=== PATIENT | female | born 2000 | race Caucasian/White ===

== ENCOUNTER 2022-06-09 23:14 | Emergency (ER) | payer MEDICAID, SELFPAY ==
[2022-06-09 23:15] VITALS: BP 125/84; PULSE 104; PULSE 92; RESP 17; TEMP 36.4; O2SAT 94; BMI 23.1
[2022-06-10] MEDS: Ipratropium/Albuterol Sulfate 3 ML AMPUL.NEB INHALATION (00:07)
[2022-06-10] MEDS: predniSONE 20 MG Tablet 60 MG PO (00:29)
[2022-06-10 00:30] VITALS: O2SAT 100
--- NOTE | 2022-06-10 01:12 | EDS_ITS ---
HPI History of Present Illness Chief Complaint: Asthma Narrative Narrative: Patient is a 21-year-old female with past medical history of autoimmune disease and asthma. She states her asthma is typically well controlled on daily Dulera as well as a rescue inhaler. She states that she missed an appointment with her visual arts teacher and was kicked out of the practice. She states she is searching for a new provider but at this time does not have 1 and has been off her medication for about 1 month. She denies any congestion drainage cough or sick exposure and states that there has been no other chemical/allergic exposure. However over the last day has had increasing shortness of breath and as he does not have medication to treat her symptoms called EMS to bring her in for evaluation. She states she was given an breathing treatment in the ambulance and does feel much better upon arrival [facility] Home Medications albuterol sulfate 90 mcg/actuation aerosol inhaler (Ventolin HFA) 1 - 2 puff inhalation Q4H PRN PRN Wheezing #1 device 06/10/22 [Rx Last Taken Unknown] mometasone-formoterol HFA 100 mcg-5 mcg/actuation aerosol inhaler (Dulera) 2 puff inhalation BID #13 grams 06/10/22 [Rx Last Taken Unknown] prednisone 20 mg tablet 40 mg PO DAILY 4 days #8 tabs 06/10/22 [Rx Last Taken Unknown] Allergy/AdvReac Type Severity Reaction Status Date / Time amoxicillin [From Augmentin] Allergy Hives Verified 06/09/22 23:19 clavulanic acid Allergy Hives Verified 06/09/22 23:19 [From Augmentin] Social History Smoking Status: Never smoker [facility] ED Constitutional Constitutional ED: Denies chills or fever(s) ENT ENT ED: Denies rhinorrhea or sore throat Cardiovascular Cardiovascular: Denies chest pain Respiratory/Chest Respiratory/Chest: Reports cough and dyspnea Gastrointestinal Gastrointestinal: Denies abdominal pain, diarrhea, nausea or vomiting Genitourinary Genitourinary ED: Denies dysuria Musculoskeletal Musculoskeletal: Denies myalgias Integumentary Denies rash Neurologic Neurologic: Denies headache(s) Hematologic/Lymphatic Hematologic/Lymphatic: Denies easy bleeding or easy bruising EXAM Physical Exam Const Vital Signs: 06/09/22 23:15 06/09/22 23:15 06/10/22 00:30 Temperature 97.6 F L Temperature Source Temporal Pulse Rate 92 104 H Respiratory Rate 17 Respiratory Effort Normal Respiratory Depth Normal Respiratory Pattern Normal Blood Pressure 125/84 H Blood Pressure Mean 97 Pulse Ox 94 94 Oxygen Delivery Method Room Air Room Air Room Air 06/10/22 01:21 Temperature Temperature Source Pulse Rate 65 Respiratory Rate 18 Respiratory Effort Respiratory Depth Respiratory Pattern Blood Pressure 94/68 Blood Pressure Mean Pulse Ox 100 Oxygen Delivery Method Positive well nourished and well developed General Appearance ED: well developed HEENT Reports moist mucous membranes HEENT Narrative: No tongue or lip swelling no oral lesions no airway edema or compromise Eyes PERRL and EOMs intact bilaterally Neck supple and no JVD Resp normal respiratory effort Resp Narrative: Breath sounds are diminished throughout with faint expiratory wheeze in the bilateral bases but otherwise no nasal flaring retractions tachypnea or accessory muscle use Cardio regular rate and regular rhythm Extremity normal to inspection Extremity Narrative: No asymmetric edema no pitting edema negative Homans' sign bilaterally Neuro oriented x3 and CN's II-XII intact bilaterally Sensorium / Orientation: alert Psych mental status grossly normal Skin no rashes or lesions noted MDM MDM MDM Narrative Medical decision making narrative: Patient presented to the ER no acute respiratory distress and reported much improvement after an EMS breathing medication. At this time she does not have signs of sickness as a cause of her asthma exacerbation and I feel it is most likely related to the fact she been off her medication. Therefore she was given oral prednisone as well as a repeat breathing medication in the ER. On reevaluation her pulse ox now up to 100% on room air and her breath sounds have improved as well. Therefore at this time as she is not in respiratory distress or requiring supplemental oxygen there is no need for admission to the hospital or further work-up. I have low concern for pneumonia or pneumothorax as a cause of her respiratory distress and therefore do not feel there is need for an x- ray. Patient will be given prescriptions for Dulera and albuterol which she is taken in the past to control her symptoms and as they have improved with treatment in the ER is otherwise safe for discharge Discharge Plan Triage Chief Complaint: Asthma ED Provider: Rosalino Stewart Dx/Rx/DC Orders Clinical Impression: Asthma exacerbation Instructions: Asthma Prescriptions: New albuterol sulfate [Ventolin HFA] 90 mcg/actuation HFA aerosol inhaler 1 - 2 puff inhalation Q4H PRN PRN (Reason: Wheezing) Qty: 1 2RF prednisone 20 mg tablet 40 mg PO DAILY 4 Days Qty: 8 0RF Dulera 100-5 mcg/actuation HFA aerosol inhaler 2 puff inhalation BID Qty: 13 3RF Primary Care Provider: Care Physician,No Primary Referrals: Estela Crenshaw MD [Med Staff - Rotary Adjuster] - Care Physician,No Primary [Primary Care Provider] - Activity Restrictions/Additional Instructions: Please take your medications as directed to help control your asthma and return to the ER should you have any further concerns Disposition Disposition: Home, Self Care Discharge Date/Time: 06/10/22 01:22
[2022-06-10 01:21] VITALS: BP 94/68; PULSE 65; RESP 18; O2SAT 100
== END 2022-06-10 01:22 | disposition home or self-care (01) ==
PROVIDERS: Emergency Provider Emergency Medicine; Visit Provider Emergency Medicine
DX: J45.901 Unspecified asthma with (acute) exacerbation (principal); Z79.51 Long term (current) use of inhaled steroids
CPT/HCPCS: 99284

== ENCOUNTER 2024-02-13 11:45 | Emergency (ER) | payer MEDICAID, SELFPAY ==
[2024-02-13 11:46] VITALS: BP 130/69; PULSE 81; RESP 16; TEMP 36.3; O2SAT 100; BMI 23.3
--- NOTE | 2024-02-13 12:06 | CT_ITS ---
HISTORY: left facial pain TECHNIQUE: Helically acquired images of the facial bones were obtained after the intravenous administration of 100 mL Isovue-300. A radiation dose optimization technique was used for this scan. 415 images. COMPARISON: None. FINDINGS: OSSEOUS STRUCTURES: No acute fracture or dislocation identified. No cortical erosion seen. SOFT TISSUES: No rim-enhancing fluid collection. Metallic jewelry in the face and oral cavity. PARANASAL SINUSES: Bilateral maxillary sinus mucous retention cysts. VISUALIZED MASTOID AIR CELLS: Clear. ORBITAL CONTENTS: Both globes, extraocular muscles and retrobulbar fat appear unremarkable. CT/Sinus/Facial Bone WITH Contras IMPRESSION: No evidence of facial abscess. No acute osseous abnormality identified. Electronically Signed: Diana Trotter MD at 13:31 EDT ,
--- NOTE | 2024-02-13 12:16 | EX.ED.DYSGE1 ---
HPI History of Present Illness Chief Complaint: Dental Informant: patient Narrative Narrative: 23-year-old female presenting to the emergency room with a chief complaint of facial pain. Patient states that she noted some slight facial discomfort during 1 night on the left but seem better just put her hand on her face. Patient states that about 0900 hrs. this morning she developed a severe sharp stabbing pain on the left face. She describes it is along the left sinus (maxillary) and around the left mandible. She denies any dental pain. No ear pain. She denies rash. She states she feels like her face is swollen. She has never had this before. No fever no vision changes. She denies any facial spasms or twitches. [facility] Medical History (Updated 02/13/24 @ 12:25 by Padmaja Whitten) Lupus Asthma Home Medications ?Medication ?Instructions ?Recorded ?Last Taken ?Type albuterol sulfate 90 mcg/actuation 1 - 2 puff inhalation Q4H PRN PRN 06/10/22 Unknown Rx aerosol inhaler (Ventolin HFA) Wheezing #1 device mometasone-formoterol HFA 100 2 puff inhalation BID #13 grams 06/10/22 Unknown Rx mcg-5 mcg/actuation aerosol inhaler (Dulera) prednisone 20 mg tablet 40 mg (2 x 20 mg) PO DAILY 4 days 06/10/22 Unknown Rx #8 tabs Allergy/AdvReac Type Severity Reaction Status Date / Time amoxicillin (From Augmentin) Allergy Hives Verified 02/13/24 11:49 clavulanic acid (From Allergy Hives Verified 02/13/24 11:49 Augmentin) Social History Smoking Status: Never smoker ROS ROS ED Constitutional Constitutional ED: Denies chills, fever(s) or weight loss Eyes Eyes: Denies blurry vision, change in vision or diplopia ENT ENT ED: Reports other Details: See history of present illness ; Denies ear pain, rhinorrhea or sore throat Cardiovascular Cardiovascular: Denies chest pain, orthopnea, palpitations or racing heartbeat Respiratory/Chest Respiratory/Chest: Denies cough, dyspnea or orthopnea Gastrointestinal Gastrointestinal: Denies abdominal pain, diarrhea, nausea or vomiting Genitourinary Genitourinary ED: Denies dysuria, hematuria or urinary frequency Musculoskeletal Musculoskeletal: Denies arthralgias or myalgias Integumentary Denies abscess or rash Neurologic Neurologic: Denies headache(s) or weakness Psychiatric Psychiatric: Denies anxiety, depression, suicidal ideation or suicidal thoughts Endocrine Endocrinology: Denies polydipsia, polyphagia or polyuria Allergic/Immunologic Allergic/Immunologic ED: Denies mouth swelling, tongue swelling or urticaria EXAM Physical Exam Const Vital Signs: 02/13/24 11:46 02/13/24 13:36 Temperature 97.3 F L 98.6 F Temperature Source Temporal Pulse Rate 81 72 Respiratory Rate 16 18 Blood Pressure 130/69 H 123/76 H Blood Pressure Mean 89 91 Pulse Ox 100 99 Oxygen Delivery Method Room Air Positive well nourished and well developed General Appearance ED: well developed HEENT Reports normocephalic, head/scalp atraumatic, TM's clear and moist mucous membranes HEENT Narrative: No dental tenderness. No trismus. Oropharyngeal exam appears normal. I do not appreciate facial swelling. I do not appreciate facial rash or rash on the tympanic membrane or external canal. Floor the mouth is soft. Tympanic Membrane ED: Yes TM's clear Eyes PERRL and EOMs intact bilaterally Neck no lymphadenopathy, supple and no JVD Resp normal respiratory effort and clear to auscultation bilaterally Cardio regular rate, regular rhythm and no murmurs GI normal to inspection, nondistended, normoactive bowel sounds and non-tender Palpation: soft Back/Spine no CVA tenderness and normal ROM Extremity normal to inspection General Extremety ED: Negative for edema General Extremity: Negative for edema Neuro oriented x3 and CN's II-XII intact bilaterally Sensorium / Orientation: alert Motor Exam: strength 5/5 throughout Psych mental status grossly normal Mood & Affect: tearful; Negative for depressed Skin no rashes or lesions noted and no wounds MDM MDM MDM Narrative Medical decision making narrative: Differential diagnosis includes but not limited to zoster, tic [place]/congenital neuralgia dental abscess parotitis Ricardo's angina sinusitis test is negative. Sodium potassium calcium within normal limits glucose of 92. CT of the face with IV contrast does not show anything acute. I do not see a definitive cause for the patient's symptomology. We talked about the possibility of developing a zoster like rash. We talked about pain control at home and following up with primary care if symptoms are persisting. She is comfortable with this plan. She has received Toradol and a dose of oxycodone here. She is more comfortable. History & Record Review Discussion w/independent historian: Patient Lab Data Attestation: I reviewed the patient's lab results. Labs: Laboratory Results - last 24 hr 02/13/24 12:25 Sodium 140 Potassium 3.6 Chloride 110 H Carbon Dioxide 26.0 Anion Gap 5 BUN 5 L Creatinine 0.72 Estim Creat Clear Calc 109.35 Est GFR (MDRD) Af Amer 128 Est GFR (MDRD) Non-Af 106 BUN/Creatinine Ratio 6.9 L Glucose 92 Calcium 9.1 Serum , Qual NEGATIVE Radiography Diagnostic Testing: Clinical Impression(s) from Imaging Studies Facial/Sinus 02/13/24 12:06 IMPRESSION: No evidence of facial abscess. No acute osseous abnormality identified. Electronically Signed: Diana Trotter MD at 13:31 EDT Reading Location ID and State: [facility] / [place] Tel , Service support , Discharge Plan Triage Chief Complaint: Dental ED Provider: Danny Bartlett Dx/Rx/DC Orders Prescriptions: No Action albuterol sulfate [Ventolin HFA] 90 mcg/actuation HFA aerosol inhaler 1 - 2 puff inhalation Q4H PRN PRN (Reason: Wheezing) Qty: 1 2RF prednisone 20 mg tablet 40 mg PO DAILY 4 Days Qty: 8 0RF Dulera 100-5 mcg/actuation HFA aerosol inhaler 2 puff inhalation BID Qty: 13 3RF Primary Care Provider: Care Physician,No Primary Referrals: Care Physician,No Primary [Primary Care Provider] - Print Language: Afghan
[2024-02-13] MEDS: oxyCODONE 5 MG Tablet PO (12:19)
[2024-02-13 12:43] LABS: Internal QC Validated? YES +Cl - CLEAR BKGD; Pregnancy, Serum, hCG Quali. NEGATIVE Negative
[2024-02-13 12:46] LABS: Anion Gap 5 (5-15); BUN 5 mg/dL (7-18); BUN/Creat Ratio 6.9 RATIO (10-20); Calcium,Total 9.1 mg/dL (8.5-10.1); Chloride 110 mmol/L (98-107); Creatinine, Serum 0.72 mg/dL (0.55-1.02); EST Glomerular Filtration Rate 106 mL/min (>60); Est Glom Filt Rate - Afr Amer 128 mL/min (>60); Estimated Creatinine Clearance 109.35 ml/min; Glucose 92 mg/dL (74-106); Potassium 3.6 mmol/L (3.5-5.1); Sodium Level 140 mmol/L (136-145)
[2024-02-13] MEDS: Ketorolac 30 MG/ML Syringe IV (13:03)
[2024-02-13 13:36] VITALS: BP 123/76; PULSE 72; RESP 18; TEMP 37; O2SAT 99
== END 2024-02-13 13:58 | disposition home or self-care (01) ==
PROVIDERS: Emergency Provider Emergency Medicine; Visit Provider Emergency Medicine
DX: K08.89 Other specified disorders of teeth and supporting structures (principal); J45.909 Unspecified asthma, uncomplicated
CPT/HCPCS: 70487; 80048; 84703; 96374; 99282; Q9967; A4216